=== PATIENT | female | born 1945 | race Hispanic/Latino ===

== ENCOUNTER → 2022-01-20 | Day surgery (SDC) | payer MEDICARE ==
[2022-01-19 13:37] LABS: BASOPHILS % 0.4 % (0.0-1.0); EOSINOPHILS # (AUTO) 0.1 (0.0-0.4); EOSINOPHILS % 0.8 % (0.0-6.0); HEMOGLOBIN 12.7 g/dL (12.0-16.0); LYMPHOCYTES % 40.2 % (18.0-39.1); MEAN CORPUSCULAR HGB CONC 32.6 g/dL (31-35); MEAN CORPUSCULAR VOLUME 101.3 fL (81-99); MONOCYTES # (AUTO) 0.6 (0.2-0.8); NEUTROPHILS # (AUTO) 3.8 (2.1-6.9); NEUTROPHILS % 50.5 % (38.7-80.0); PLATELET COUNT 258 x10e3/uL (140-360); RED BLOOD COUNT 3.85 x10e6/uL (3.6-5.1); RED CELL DISTRIBUTION WIDTH 12.9 % (11.7-14.4)
[~2022-01-20] MED LIST: ACETAMINOPHEN325 M1 PO; CALTRATE 600 W1 EACH PO; LISINOPRIL10 MG PO; METFORMIN HCL500 MG PO; NEURONTIN100 MG PO; PROPOFOL IV EMULSION 10 MG/ML 20 ML VIAL ONE
[2022-01-20 15:16] VITALS: BP 116/58
== END | disposition home or self-care (01) ==
LOC: OR 13:00 → EDBD 16:00
PROVIDERS: ATTEND Internal Medicine Gastroenterology
DX: Z12.11 Encounter for screening for malignant neoplasm of colon (principal); K92.1 Melena; K57.30 Diverticulosis of large intestine without perforation or abscess without bleeding; K64.8 Other hemorrhoids; I10 Essential (primary) hypertension; R73.03 Prediabetes; R00.1 Bradycardia, unspecified; Z88.0 Allergy status to penicillin; Z01.810 Encounter for preprocedural cardiovascular examination; Z01.812 Encounter for preprocedural laboratory examination; Z20.822 Contact with and (suspected) exposure to COVID-19; Z79.82 Long term (current) use of aspirin; Z79.84 Long term (current) use of oral hypoglycemic drugs; Z79.899 Other long term (current) drug therapy; Z68.32 Body mass index [BMI] 32.0-32.9, adult; Z90.49 Acquired absence of other specified parts of digestive tract
CPT/HCPCS: 0223U; 36415 ×2; 82948; 85025; 93005; G0121; J2704; 45378